=== PATIENT | female | born 1995 | race Caucasian/White ===

== ENCOUNTER → 2019-01-09 | Outpatient (CLI) | payer OTHER ==
--- NOTE | 2019-01-09 10:15 | 2DMMODE ---
[place] [address] 2 D/M-MODE ECHOCARDIOGRAM Name: MELANIE RAMOSLEI ANEL Room: [facility]#: [id number] Admission: 01/09/19 Attend Phys: Melida Balbuena MD Discharge: Date of : 89 Date of Service: 01/09/19 1015 Report #: [id number] THIS REPORT FOR: //name// APPROVED REPORT Study performed: 01/09/2019 08:03:34 EXAM: Comprehensive 2D, Doppler, and color-flow Echocardiogram Patient Location: Out-Patient BSA: 1.55 HR: 86 bpm BP: 108/60 mmHg Other Information Study Quality: Good Indications Palpitations 2D Dimensions IVSd: 8.06 (7-11mm) LVOT Diam: 19.73 (18-24mm) LVDd: 38.43 mm PWd: 8.58 (7-11mm) Ascending Ao: 24.75 (22-36mm) LVDs: 25.16 (25-40mm) Aortic Root: 26.03 mm Volumes Left Atrial Volume (Systole) LA ESV Index: 10.80 mL/m2 Aortic Valve AoV Peak Justin.: 0.98 m/s AO Peak Gr.: 3.82 mmHg LVOT Max P.83 mmHg AO Mean Gr.: 2.21 mmHg LVOT Mean P.56 mmHg LVOT Max V: 0.84 m/s AO V2 VTI: 16.38 cm LVOT Mean V: 0.58 m/s LINDA (VTI): 2.97 cm2 LVOT V1 VTI: 15.91 cm Mitral Valve E/A Ratio: 1.45 MV Decel. Time: 157.47 ms MV E Max Justin.: 0.67 m/s MV PHT: 45.67 ms MVA (PHT): 4.82 cm2 [place] [address] 2 D/M-MODE ECHOCARDIOGRAM Name: MELANIE RAMOSLEI ANEL Room: [facility]#: [id number] Admission: 01/09/19 Attend Phys: Melida Balbuena MD Discharge: Date of : 89 Date of Service: 01/09/19 1015 Report #: [id number] TDI E/Lateral E': 4.47 E/Medial E': 5.58 Medial E' Justin.: 0.12 m/s Lateral E' Justin.: 0.15 m/s Pulmonary Valve PV Peak Justin.: 0.75 m/s PV Peak Gr.: 2.22 mmHg Tricuspid Valve TR Peak Gr.: 8.75 mmHg Left Ventricle The left ventricle is normal size. There is normal LV segmental wall motion. There is normal left ventricular wall thickness. Left ventricular systolic function is normal. The left ventricular ejection fraction is within the normal range. LVEF is 60%. The left ventricular diastolic function is normal. Right Ventricle The right ventricle is normal size. The right ventricular systolic function is normal. Atria The left atrium size is normal. The right atrium size is normal. Aortic Valve The aortic valve is normal in structure. No aortic regurgitation is present. There is no aortic valvular stenosis. Mitral Valve The mitral valve is normal in structure. There is no mitral valve regurgitation noted. No evidence of mitral valve stenosis. Tricuspid Valve The tricuspid valve is normal in structure. There is no tricuspid valve regurgitation noted. Pulmonic Valve The pulmonary valve is normal in structure. There is no pulmonic valvular regurgitation. Great Vessels The aortic root is normal in size. IVC is normal in size and collapses >50% [place] [address] 2 D/M-MODE ECHOCARDIOGRAM Name: ROGE RAMOS Room: [facility]#: [id number] Admission: 01/09/19 Attend Phys: Melida Balbuena MD Discharge: Date of : 89 Date of Service: 01/09/19 1015 Report #: [id number] Pericardium There is no pericardial effusion. <Conclusion> The left ventricle is normal size. There is normal left ventricular wall thickness. Left ventricular systolic function is normal. The left ventricular ejection fraction is within the normal range. LVEF is 60%. The left ventricular diastolic function is normal. The right ventricle is normal size. The left atrium size is normal. The aortic valve is normal in structure. The mitral valve is normal in structure. The tricuspid valve is normal in structure. IVC is normal in size and collapses >50% with inspiration. There is no pericardial effusion. There is normal LV segmental wall motion. <ELECTRONICALLY SIGNED> By: Junior Caldwell MD, [facility] 01/09/19 1015 1015 1015 Junior Caldwell MD, FACC /INF
--- NOTE | 2019-01-14 17:11 | 24HR ---
[place] [address] [employer] MONITOR REPORT Name: ROGE RAMOS Room: [facility]#: [id number] Admission: 01/09/19 Attend Phys: Melida Balbuena MD Discharge: Date of : 89 Date of Service: 01/14/19 1059 Report #: [id number] THIS REPORT FOR: //name// [facility] Test Date: 2019-01-14 Test Time: 10:59:54 Pat Name: ROGE RAMOS Department: Room: Gender: F Observer [employer]: : 1995 Requested By: Melida Balbuena Order Number: [id number] Sumi MD: Pieter Molina Interpretive Statements 1. sinus rhythm with sinus bradycardia and tachycardia 2. rare pac 3. no diary submitted Electronically Signed On 01-14-2019 17:11:32 CDT by Pieter Molina [email or web address] <ELECTRONICALLY SIGNED> By: Pieter Molina MD, [facility] 01/14/19 1711 1059 1059 Pieter Molina MD, FACC /EPI
== END ==
LOC: M.CRD 07:35
DX: R00.2 Palpitations (principal)

== ENCOUNTER → 2019-03-28 | Outpatient (CLI) | payer OTHER | LOC: M.ULTRA 07:30 | DX: R10.84 Generalized abdominal pain (principal) ==

== ENCOUNTER → 2019-04-04 | Outpatient (CLI) | payer OTHER | LOC: M.NUC 12:21 | DX: R10.84 Generalized abdominal pain (principal) ==

== ENCOUNTER → 2020-06-29 | Outpatient (CLI) | payer OTHER | LOC: M.ULTRA 14:39 | PROVIDERS: ATTEND Family Medicine | DX: O20.9 Hemorrhage in early pregnancy, unspecified (principal); Z3A.01 Less than 8 weeks gestation of pregnancy ==

== ENCOUNTER 2020-09-23 08:14 | Emergency (ER) | payer OTHER ==
[~2020-09-23] VITALS: Ht 157.5 cm; Wt 68.0 kg
[2020-09-23] MEDS ORDERED: PNV 29-1 TABLE1 EACH PO (08:27)
[2020-09-23 08:46] LABS: ABSOLUTE EOSINOPHILS 0.1 thou/uL (0.0-0.7); ABSOLUTE LYMPHOCYTES 1.5 thou/uL (0.8-5.3); ABSOLUTE MONOCYTES 0.7 thou/uL (0.0-1.2); ABSOLUTE NEUTROPHILS 9.3 thou/uL (1.6-8.1); BASOPHILS 0.2 %; EOSINOPHILS 0.6 %; HEMATOCRIT 32.7 % (37.0-47.0); HEMOGLOBIN 11.4 gm/dL (12.0-15.0); LYMPHOCYTES 12.7 %; MCH 30.9 pg (26.0-34.0); MCHC 34.9 g/dL (28.0-37.0); MCV 88.6 fL (80.0-100.0); MONOCYTES 6.2 %; MPV 8.4 fl. (7.2-11.1); NUCLEATED RBCS 0 /100WBC; PLATELET COUNT* 250 thou/uL (150-400); POLYS 80.3 %; RBC 3.69 mil/uL (4.20-5.00); RDW-CV 13.1 % (10.5-14.5); WBC 11.6 thou/uL (4.0-11.0)
[2020-09-23 08:56] LABS: CALCIUM 9.1 mg/dL (8.5-10.1); CREATININE 0.5 mg/dL (0.6-1.3); POTASSIUM 3.9 mmol/L (3.5-5.1)
[2020-09-23 09:03] LABS: URINE BILIRUBIN NEGATIVE (Negative); URINE BLOOD TRACE (Negative); URINE CLARITY CLEAR; URINE COLOR YELLOW; URINE GLUCOSE-RANDOM NEGATIVE (Negative); URINE KETONES NEGATIVE (Negative); URINE LEUKOCYTES-REFLEX NEGATIVE (Negative); URINE NITRITE-REFLEX NEGATIVE (Negative); URINE PROTEIN NEGATIVE (Negative); URINE SPECIFIC GRAVITY 1.015 (1.005-1.030); URINE UROBILINOGEN 0.2 E.U./dl (0.2-1.0)
[2020-09-23 09:08] LABS: ALBUMIN 3.1 g/dL (3.4-5.0); TOTAL BILIRUBIN 0.3 mg/dL (<0.1-1.0); TOTAL PROTEIN 6.5 g/dL (6.4-8.2)
[2020-09-23 12:57] VITALS: BP 96/54
--- NOTE | 2020-09-23 15:34 | EKG ---
[place] [address] ELECTROCARDIOGRAM REPORT Name: ROGE RAMOS Room: [facility]#: [id number] Admission: 09/23/20 Attend Phys: Discharge: 09/23/20 Date of : 89 Date of Service: 09/23/20830 Report #: [id number] THIS REPORT FOR: //name// [facility] ED Test Date: 2020-09-23 Test Time: 08:31:59 Pat Name: ROGE RAMOS Department: Room: Gender: [employer]: ARIES : 1995 Requested By: Anders Fernandez Order Number: [id number] MD: Junior Caldwell Measurements Intervals [employer] Rate: 93 P: 49 MA: 137 QRS: 62 QRSD: 83 T: 15 QT: 338 QTc: 421 Interpretive Statements Sinus rhythm Baseline wander in lead(s) V1 No previous ECG available for comparison Electronically Signed On 09-23-2020 15:33:55 ELIGIBILITY MANAGER by Junior Caldwell [email or web address] <ELECTRONICALLY SIGNED> By: Junior Caldwell MD, [facility] 09/23/20 1533 0 0 Junior Caldwell MD, [facility] /EPI
== END 2020-09-23 12:57 | disposition home or self-care (01) ==
LOC: M.ERS 08:14
PROVIDERS: Emergency Medicine Emergency Medical Services
DX: O99.512 Diseases of the respiratory system complicating pregnancy, second trimester (principal); R06.02 Shortness of breath; Z3A.17 17 weeks gestation of pregnancy